=== PATIENT | male | born 1950 | race Caucasian/White ===

== ENCOUNTER 2018-11-12 07:54 | Outpatient (CLI) | payer BC, MEDICARE | END 2018-11-12 07:55 | disposition home or self-care (01) | LOC: CARDIO 07:54 ==

== ENCOUNTER 2018-11-13 09:05 | Inpatient (IN) | payer BC, MEDICARE ==
--- NOTE | 2018-11-13 09:13 | ED PDOC ---
Arrival/HPI - General Chief Complaint: Shortness Of Breath Time Seen by Provider: 11/13/18 09:11 Historian: Patient - History of Present Illness Narrative History of Present Illness (Text): 11/13/18 09:37 68 year old male with no significant PMH presents to the emergency department complaining of dry cough and SOB x 2 weeks. SOB is worse with lying flat. Pt saw his primary doctor and received a workup including bloodwork approx 1 week ago and an echocardiogram yesterday. Pt was called by PMD Dr. Davina Cuellar yesterday and told that the echo showed an EF of 20%, advised pt to come to the emergency department for evaluation. Admits to worsening bilateral leg and abdominal swelling over the last 2 weeks, but has been taking OTC water pills at the advice of his PMD with some relief. Denies chest pain, palpitations, fever, congestion, back pain, abdominal pain, N/V, urinary symptoms, or any other associated complaints. Past Medical History - Provider Review Nursing Documentation Reviewed: Yes Family/Social History - Physician Review Nursing Documentation Reviewed: Yes Family/Social History: No Known Family HX Allergies/Home Meds Allergies/Adverse Reactions: Allergies No Known Allergies Allergy (Verified 11/13/18 09:17) Home Medications: Home Meds Medication Instructions Recorded Confirmed Magnesium Salicylate/Caffeine 1 tab PO DAILY 11/13/18 11/13/18 [Diurex Water Pills] Review of Systems - Physician Review All systems were reviewed & negative as marked: Yes - Review of Systems Constitutional: Normal. absent: Fevers Eyes: Normal. absent: Vision Changes ENT: Normal. absent: Hearing Changes, Sore Throat, Sinus Congestion Respiratory: SOB, Cough. absent: Sputum, Wheezing Cardiovascular: Normal. absent: Chest Pain, Palpitations Gastrointestinal: Normal. absent: Abdominal Pain, Stool Changes, Nausea, Vomiting, Appetite Changes Genitourinary Male: Normal. absent: Dysuria, Frequency Musculoskeletal: Other (bilateral leg swelling). absent: Arthralgias, Back Pain, Neck Pain Skin: Normal. absent: Rash Neurological: Normal. absent: Headache, Dizziness Endocrine: Normal Hemo/Lymphatic: Normal Psychiatric: Normal Physical Exam Vital Signs Reviewed: Yes Temperature: Afebrile Blood Pressure: Hypertensive Pulse: Regular Respiratory Rate: Normal Appearance: Positive for: Well-Appearing, Non-Toxic, Comfortable Pain Distress: None Mental Status: Positive for: Alert and Oriented X 3 - Systems Exam Head: Present: Atraumatic, Normocephalic Pupils: Present: PERRL Extroacular Muscles: Present: EOMI Conjunctiva: Present: Normal Mouth: Present: Moist Mucous Membranes Neck: Present: Normal Range of Motion Respiratory/Chest: Present: Decreased Breath Sounds (bilaterally), Rales (bilateral bases). No: Respiratory Distress, Accessory Muscle Use Cardiovascular: Present: Regular Rate and Rhythm, Normal S1, S2, Peripheal Pu lses Present Abdomen: Present: Normal Bowel Sounds. No: Tenderness, Distention, Peritoneal Signs Back: Present: Normal Inspection Upper Extremity: Present: Normal Inspection, Normal ROM, NORMAL PULSES, Neurovascularly Intact, Capillary Refill < 2s. No: Cyanosis, Edema, Swelling, Temperature Abnormalties Lower Extremity: Present: Edema (bilateral pitting edema), NORMAL PULSES, Normal ROM, Swelling, Neurovascularly Intact, Capillary Refill < 2 s. No: CALF TENDERNESS, Tenderness, Deformity, Temperature Abnormalties Neurological: Present: GCS=15, CN II-XII Intact, Speech Normal, Motor Func Grossly Intact, Normal Sensory Function, Gait Normal Skin: Present: Warm, Dry, Normal Color. No: Rashes Psychiatric: Present: Alert, Oriented x 3, Normal Insight, Normal Concentration, Normal Affect, Normal Mood Medical Decision Making ED Course and Treatment: Initial Plan: * CBC, CMP * BNP, Cardiac Iso * MG, Phos * Coags * EKG * CXR 11/13/18 10:11 Lab results and imaging reviewed from recent workup. Significant for BNP 1663. Echocardiogram shows EF of 20.2%, pulmonary hypertension, tricuspid, aortic, and mitral regurgitation, hypokinesis of left and right ventricles. Potassium value 2.9, will replace with 40mEq oral and 10mEq IV BNP 4210, will give 40mEq lasix after potassium repletion CXR shows left pleural effusion, cardiomegaly EKG shows changes from prior, new t-wave inversions in inferolateral leads 11:[address] Padilla, medicine manager of information, who accepts patient to telemetry floor with diagnosis of CHF, requests cardiology consult and diet order. Patient made aware of change in disposition. Resting comfortably in stretcher with stable vital signs at this time. - Lab Interpretations Lab Results: 11/13/18 09:50 11/13/18 09:50 Lab Results 11/13/18 09:50: Sodium 138, Potassium 2.9 L*, Chloride 107, Carbon Dioxide 25, Anion Gap 9 L, BUN 20, Creatinine 0.9, Est GFR ( Amer) > 60, Est GFR (Non-Af Amer) > 60, Random Glucose 130 H, Calcium 8.2 L, Magnesium 1.6 L, Total Bilirubin 1.3, AST 75 H D, ALT 74 H, Alkaline Phosphatase 79, Lactate Dehydrogen ase 365, Total Creatine Kinase 132, Troponin I 0.01, NT-Pro-B Natriuret Pep 4210 H, Total Protein 5.9, Albumin 3.2, Globulin 2.6, Albumin/Globulin Ratio 1.2 11/13/18 09:50: PT 14.7 H, INR 1.30, APTT 31.9 11/13/18 09:50: WBC 5.1, RBC 4.64, Hgb 13.1 L, Hct 40.8 L, MCV 87.9, MCH 28.2, MCHC 32.1, RDW 14.9 H, Plt Count 159, MPV 10.9, Neut % (Auto) 60.1, Lymph % (Auto) 28.8, [place] % (Auto) 8.4 H, Eos % (Auto) 2.5, Baso % (Auto) 0.2, Lymph # (Auto) 1.5, [place] # (Auto) 0.4, Eos # (Auto) 0.1, Baso # (Auto) 0.01, Absolute Neuts (auto) 3.08 I have reviewed the lab results: Yes - RAD Interpretation Narrative RAD Interpretations (Text): CXR: Severe cardiomegaly and small left sided pleural effusion Fleet Maintenance Foreman: Radiologist - EKG Interpretation EKG Interpretation (Text): Rate 86; NSR; Prolonged QT; No STEMI, nonspecific ST/T wave changes Interpreted by ED Physician: Yes Type: 12 lead EKG Comparison: Com.w/previous EKG (06/25/17) Disposition/Present on Arrival - Present on Arrival Any Indicators Present on Arrival: No History of DVT/PE: No History of Uncontrolled Diabetes: No Urinary Catheter: No History of Decub. Ulcer: No - Disposition Have Diagnosis and Disposition been Completed?: Yes Diagnosis: CHF (congestive heart failure), Peripheral edema, Hypokalemia Disposition: HOSPITALIZED Disposition Time: 11:20 Patient Plan: Admission Patient Problems: Current Active Problems Problem Status Onset CHF (congestive heart failure) Acute Hypokalemia Acute Peripheral edema Acute Condition: STABLE
--- NOTE | 2018-11-13 10:00 | RAD ---
Date of service: 11/13/2018 HISTORY: SOB COMPARISON: No prior. FINDINGS: LUNGS: The lungs are well inflated and clear. PLEURA: Small left pleural effusion. No pneumothorax. CARDIOVASCULAR: There is severe cardiomegaly. There are aortic atherosclerotic calcifications present. OSSEOUS STRUCTURES: Within normal limits for the patient's age. VISUALIZED UPPER ABDOMEN: Normal. OTHER FINDINGS: None. IMPRESSION: Severe cardiomegaly and small left pleural effusion.
[2018-11-13 10:02] LABS: BASO # 0.01 K/mm3 (0.0-2.0); BASO % 0.2 % (0.0-3.0); EOS # 0.1 (0.0-0.7); EOS % 2.5 % (1.5-5.0); HEMOGLOBIN 13.1 g/dL (14.0-18.0); LYMPH # 1.5 (1.2-3.4); LYMPH % 28.8 % (22.0-35.0); MEAN CELL VOLUME 87.9 fl (80.0-105.0); MEAN CORPUSCULAR HEMOGLOBIN 28.2 pg (25.0-35.0); MEAN CORPUSCULAR HGB CONC 32.1 g/dl (31.0-37.0); MEAN PLATELET VOLUME 10.9 fl (7.0-11.0); MONO # 0.4 (0.1-0.6); MONO % 8.4 % (1.0-6.0); RBC 4.64 10^6/uL (3.5-6.1); RED CELL DISTRIBUTION WIDTH 14.9 % (11.5-14.5); WHITE BLOOD COUNT 5.1 10^3/uL (4.5-11.0)
[2018-11-13 10:34] LABS: INR 1.3; PARTIAL THROMBOPLASTIN TIME 31.9 Seconds (26.9-38.3); PROTHROMBIN TIME 14.7 SECONDS (9.4-12.5)
[2018-11-13 10:40] LABS: BLOOD UREA NITROGEN 20 mg/dL (7-21); GFR NON-AFRICAN AMERICAN > 60
[2018-11-13 10:41] LABS: ALB/GLOB RATIO 1.2 (1.1-1.8); ALBUMIN 3.2 g/dL (3.0-4.8); AST/SGOT 75 U/L (17-59); B-TYPE NATRIURETIC PEPTIDE 4210 pg/mL (0-450); CALCIUM 8.2 mg/dL (8.4-10.5)
[2018-11-13 10:42] LABS: ALT/SGPT 74 U/L (7-56); TROPONIN I 0.01 ng/mL
[2018-11-13] MEDS ORDERED: Potassium Chloride 20 mEq ER Tab PO STA (10:44)
[2018-11-13] MEDS: Potassium Chloride 20 mEq ER Tab PO SCH (17:22)
--- NOTE | 2018-11-13 17:31 | US ---
Date of service: 11/13/2018 HISTORY: elevated lfts COMPARISON: None. TECHNIQUE: Grayscale imaging was performed. FINDINGS: LIVER: Measures 16.0 cm in length. There is diffuse increased echogenicity of the liver parenchyma. No mass. No intrahepatic bile duct dilatation. GALLBLADDER: There are no gallstones. The gallbladder is partially contracted. There is apparent mild gallbladder wall thickening which measures 4 mm. The sonographic Negron's sign is negative. No pericholecystic fluid. COMMON BILE DUCT: Measures 7.4 mm. No stones. No dilatation. PANCREAS: Unremarkable as visualized. No mass. No ductal dilatation. RIGHT KIDNEY: Measures 11.7 cm in length. Normal echogenicity. No calculus, mass, or hydronephrosis. There is a 2.2 x 2.0 x 2.2 cm simple cyst in the upper pole. AORTA: No aneurysmal dilatation. IVC: Unremarkable. OTHER FINDINGS: There is mild perihepatic ascites. IMPRESSION: 1. Fatty liver. 2. Mild perihepatic ascites. 3. No cholelithiasis or biliary dilatation. Mild gallbladder wall thickening, nonspecific.
[2018-11-13 19:11] VITALS: BMI 23.3
--- NOTE | 2018-11-13 20:42 | CARD ---
APPROVED REPORT Date of service: 11/13/2018 EKG Measurement Heart [id number] <Conclusion> Normal sinus rhythm Possible Left atrial enlargement ST & T wave abnormalities Prolonged QTc Abnormal ECG
[2018-11-13 20:44] LABS: HEPATITIS B SURFACE AG Negative (NEGATIVE)
[2018-11-13 20:50] LABS: HEPATITIS A IGM NEGATIVE (NEGATIVE); HEPATITIS B CORE AB NEGATIVE (NEGATIVE)
[2018-11-13 21:01] LABS: HEPATITIS C ANTIBODY NEGATIVE (NEGATIVE)
--- NOTE | 2018-11-13 22:09 | HP ---
DATE OF EXAM: 11/13/2018 HISTORY OF PRESENT ILLNESS: This 68-year-old male was examined on cot 16 of the [facility] ER on the afternoon of 11/13/2018. He is a 68-year-old male. He presents to the [facility] emergency room complaining of a dry cough with shortness of breath for the past 2 weeks. He states that the shortness of breath was worse when he lays down flat at night in his bed and he had been seen by his primary care physician and had undergone a workup approximately 1 week ago including lab testing echocardiography venous duplex and a scrotal ultrasound. His physician, Dr. Davina Cuellar called the patient yesterday and told him that his echo showed an ejection fraction of approximately 20% and told him to come to the emergency room for further evaluation of the above. The patient states that he was given csfy-yvz-tjdrlkv water pills on the advice of his physician with improvement in the edema of his abdomen, groin and legs and at present, was noted to be hypokalemia. He is being admitted for all of the above. MEDICATIONS: The patient's outpatient medications included timo-vvk-mtqohbl water pills. ALLERGIES: HE HAS NO KNOWN ALLERGIES TO MEDICATIONS. 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 FAMILY HISTORY: Significant and that his mother at age 54 of a stroke, his father lived into his 90s and of natural causes. REVIEW OF SYSTEMS: CONSTITUTIONAL: He denied fever or chills. HEAD: No headache or seizures. EYES: No change in visual acuity. EARS: No hearing loss. THROAT: No swallowing difficulty. NECK: No stiffness. CARDIAC REVIEW: Denied chest pain or palpitation. PULMONARY: No cough, but shortness of breath. No hemoptysis. GI: No hematemesis. No melena. : No dysuria. SKIN: No ulcers. VASCULAR: No claudication. PSYCHOLOGICAL: No depression. NEUROLOGICAL: No knowledge of stroke. DIAGNOSTIC DATA: Chest x-ray was reviewed in the emergency room which showed that his lungs were inflated and clear. There was a small left pleural effusion, no pneumothorax with severe cardiomegaly and atherosclerotic calcifications present. The impression was severe cardiomegaly with small left pleural effusion. Labs showed white count 5100, hemoglobin 13.1, hematocrit 40.8, and platelets 159,000. PT/INR 1.3 and PTT 31.9. Sodium 138, K of 2.9, chloride 107, bicarb 25, BUN 20, creatinine 0.9, random blood sugar 130, and calcium 8.2. Magnesium 1.6, bilirubin 1.3, AST 75, ALT 74, and alk phos 79. BNP 4210. CPK 132, normal with troponin 0.01. EKG reportedly showed normal sinus rhythm with nonspecific ST-T wave changes. IMPRESSION: This 68-year-old male with cardiomyopathy, elevated liver function tests, rule out right heart failure with passive congestion of the liver. I did review his echocardiography dated 11/12/2018, which was in the [facility] x-ray system, it showed left ventricle dilated with normal left ventricular wall thickness severe impaired systolic function with global hypokinesis of the left ventricle. No left ventricle thrombus was noted on the study. The right ventricle was mildly dilated and severely hypokinetic with [id number]-cb-vgdyurrb aortic regurgitation, severe mitral regurgitation, severe tricuspid regurgitation with pulmonary hypertension present. PLAN: The plan at present is to admit this patient to the cardiac jensen. A consultation with Dr. Naif Valderrama has been requested. He will be placed on a heart-healthy diet with a 1000 ml p.o. fluid restriction. Potassium replacement has been requested, given his hypokalemia. I will order a hepatitis A, B, C panel and a liver ultrasound for completeness sake and he will be started on Zestril and Coreg for his cardiomyopathy. As discussed with the patient, he may require stress testing or cardiac cath. Greater than 75 minutes was spent in the care management, review of labs, orders, x-rays and discussion of this patient with him at bedside. All questions were answered Roselyn Padilla MD
[2018-11-14 08:19] LABS: CALCIUM 8.3 mg/dL (8.4-10.5); GFR NON-AFRICAN AMERICAN > 60; HDL CHOLESTEROL 30 mg/dL (29-60)
[2018-11-14 08:32] LABS: LDL CHOLESTEROL 109 mg/dL (0-129)
[2018-11-14 08:35] LABS: BLOOD UREA NITROGEN 21 mg/dL (7-21)
[2018-11-14] MEDS: Potassium Chloride 20 mEq ER Tab PO SCH ×3 (11:15→17:36)
--- NOTE | 2018-11-14 16:29 | PN ---
DATE: 11/14/2018 SUBJECTIVE: This 68-year-old male was examined at the [facility] on the cardiac jensen on the morning of 11/14/2018. This case was reviewed in detail with himself and Dr. Naif Valderrama from Cardiology. He was admitted with anasarca and cardiomyopathy with recent echocardiography showing ejection fraction of approximately 20%. The patient had been seen at a local [facility] for these complaints where on echo he was noted to have decompensated cardiomyopathy and advised to be admitted to [facility] for further evaluation of the above. On monitoring coordinator at the present time he is in a normal sinus rhythm. He denies any fever, chills, chest pain or shortness of breath at present. OBJECTIVE: VITAL SIGNS: Temperature was 97.4, respirations 21, pulse 81, blood pressure 142/84. Pulse ox 97%. HEENT: Head: Normocephalic, atraumatic. Eyes: No icterus. Ears: Clear. Throat: Noninjected. NECK: Supple. HEART: S1, S2. LUNGS: Clear. ABDOMEN: Soft. EXTREMITIES: Trace edema. SKIN: Without rash. NEUROLOGICAL: Intact. PSYCHOLOGICAL: Alert. VASCULAR: Legs warm to touch. LABORATORY DATA: White count 5100, hemoglobin 13.1, hematocrit 40.8, platelets 159,000. PT/INR 1.3, PTT 31.9. Sodium 139, K 3, chloride 106, bicarb 26, BUN 21, creatinine 0.9, random blood sugar 90, calcium 8.3. Cholesterol 158, triglycerides 76, LDL 109, HDL 30. T4 normal at 8. Hepatitis A, B serologies are negative. Abdominal ultrasound was reviewed. This was requested because of elevated liver function testing. His liver measures 16 cm in length with diffuse increased echogenicity noted of his liver parenchyma. No masses, no intrahepatic bile duct dilatation was noted. No gallstones were noted. Common bile duct was within normal limits. Pancreas showed no mass. He was noted to have fatty liver, mild perihepatic ascites, no cholelithiasis or biliary tract dilatation and right kidney showed no hydronephrosis with a simple cyst. IMPRESSION: This is a 68-year-old male with cardiomyopathy, anasarca. PLAN: To continue Coreg, K-Dur, Lasix, Zestril. The patient was recommended to have a cardiac cath by Dr. Valderrama. I have reviewed this with him in detail. He continues on heart-healthy diet with fluid restriction and will be scheduled for a basic metabolic panel in the a.m. Based on clinical progress, additional diagnostic workup and testing will be entertained. Greater than 35 minutes was spent in the management of this patient today. All questions were answered. Roselyn Padilla MD MTDD
--- NOTE | 2018-11-15 03:23 | CON ---
DATE: 11/14/2018 REQUESTING PHYSICIAN: Dr. Padilla REASON FOR CONSULTATION: Peripheral edema and congestive heart failure. HISTORY: This is a 68-year-old man who reportedly has no significant past medical history and was recently seen by his primary care physician for complaints of leg edema and scrotal edema. A lower extremity venous duplex scan was reportedly performed and was apparently unremarkable. Scrotal ultrasound showed no evidence of hydrocele. Echocardiogram was performed revealing four-chamber enlargement with severely reduced LV systolic function. Admission for treatment was advised. He denies any prior cardiac history. He states he has had elevated blood pressure at times in the past but has not required medication for this. He denies alcohol abuse. He has had no recent viral illnesses. He has noticed a dry cough and some dyspnea for the past several weeks. He has had no fever. He is unaware of any palpitations. He is not a diabetic and his cholesterol is reportedly normal. He does not smoke, and there is no family history of premature heart disease. PAST HISTORY: Otherwise unremarkable. MEDICATIONS: Until recently none. ALLERGIES: NONE. SOCIAL HISTORY: He does not smoke or drink. 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 FAMILY HISTORY: Father in his 90s from age-related illness. Mother from cerebrovascular accident at the age of 54, details were unclear. He is a [place] [employer] [facility] [employer]. REVIEW OF SYSTEMS: Ten-point review of systems is otherwise unremarkable. He states that his stamina is relatively good and he rides a bicycle around town frequently. PHYSICAL EXAMINATION: GENERAL: He is a thin middle-aged man. VITAL SIGNS: His blood pressure is 126/90 with a pulse of 80 and sinus, respirations are 16. He is afebrile. HEENT: Head normocephalic, atraumatic. NECK: Supple. No JVD noted. CHEST: Few scattered rhonchi are heard. No rales noted. HEART: PMI displaced laterally with soft tones present and systolic murmur at the lower left sternal border and apex. ABDOMEN: Soft, mildly distended. Bowel sounds are present. EXTREMITIES: 2+ edema in both lower extremities is noted. SKIN: Warm and dry. PSYCHIATRIC: Normal mood and affect. NEUROLOGIC: Alert and oriented x3. No gross motor or sensory deficits noted. DIAGNOSTIC DATA: White count is 5.1, hemoglobin and hematocrit of 13.1 and 40.8 with a platelet count of 159,000. PT and PTT of 14.7 and 31.9. Initial potassium was 2.9, repeat is 3; replacement has been provided. BUN and creatinine of 20 and 0.9. Glucose 130. Hemoglobin A1c 6.3. Magnesium 1.6. AST and ALT elevated at 75 and 74. Troponin is negative. BNP is 4210. Cholesterol is 158 with an HDL of 30 and LDL of 109, triglycerides of 76. Hepatitis serology is negative. Chest x-ray reveals an enlarged cardiac silhouette with clear lung bowman. Electrocardiogram reveals sinus rhythm with left atrial abnormality, prolonged QT and nonspecific ST-T abnormalities. IMPRESSION: 1. Decompensated congestive heart failure, right sided greater than left, appears acute and systolic, etiology uncertain. 2. Elevated transaminases, possibly is related to a passive congestion. 3. Rest of problems as noted. RECOMMENDATIONS: The patient has been initiated on low-dose carvedilol. MELISA inhibitor has been added as well. IV Lasix has been started as well. Given his severe LV dysfunction of uncertain etiology, right and left heart catheterization and coronary angiography would be appropriate. The timing of this will be discussed with the patient and Dr. Padilla. Once he is adequately diuresed, discharge home can be planned and his catheterization can be arranged as an outpatient. Further recommendations will be made based upon his clinical course and response to the above interventions. Thank you for this consultation. We will be happy to follow along as needed. Naif Valderrama MD
[2018-11-15 07:50] LABS: BLOOD UREA NITROGEN 21 mg/dL (7-21); CALCIUM 8.7 mg/dL (8.4-10.5); GFR NON-AFRICAN AMERICAN > 60
[2018-11-15] MEDS: Potassium Chloride 20 mEq ER Tab PO SCH ×3 (10:48→17:38)
--- NOTE | 2018-11-15 13:45 | PN ---
DATE: 11/15/2018 SUBJECTIVE: This 68-year-old male remains hospitalized with cardiomyopathy and congestive heart failure. I did review the patient's abdominal ultrasound, it is consistent with fatty liver and perihepatic ascites in the setting of right heart failure secondary to cardiomyopathy and mitral regurgitation. I have discussed this case in detail with the patient and Dr. Naif Valderrama from Cardiology. According to his nurse, Armida Lugo, registered nurse with whom I have discussed this case, the patient is on schedule for cardiac cath in the a.m. At present, he remains in a normal sinus rhythm on potline monitor. PHYSICAL EXAMINATION VITAL SIGNS: Temperature 97.8, respirations 20, pulse 87, and blood pressure 125/94 with pulse ox 97% on room air. Physical exam remains unchanged. LABORATORY DATA: White count 5100, hemoglobin 13.1, hematocrit 40.8, platelets 159,000. PT/INR 1.3, PTT 31.9. Sodium 141, K 3.2, chloride 108, bicarb 28, BUN 21, creatinine 1.0, random blood sugar 94, calcium 8.7. Cholesterol 158, triglycerides 76, LDL 109 and HDL 30 with a T4 normal at 8.0. Hepatitis ABC serologies are negative. IMPRESSION: A 68-year-old male with systolic congestive heart failure, right heart failure causing elevated liver function testing secondary to passive congestion of the liver as well as fatty liver with diuretic-induced hypokalemia and hyperlipidemia. PLAN: Plan is to continue Coreg, K-Dur, Lasix, IV potassium replacement for hypokalemia, Zestril, p.r.n. Tylenol and Zofran. The patient will have a repeat basic metabolic panel in the a.m. I have ordered his Lasix to be decreased to 20 mg IV every 12 hours. He will continue on K-Dur 40 mEq p.o. t.i.d. and he will be given potassium chloride 20 mEq and 100 mL of IV fluids over 2 hours x2 doses and will be continued on his heart-healthy diet, but made n.p.o. at midnight tonight. Based on his clinical result, additional diagnostic workup and testing will be entertained. Greater than 35 minutes was spent in the care management, review of labs, orders and x-rays and discussion of this patient with nurse, Parish. All questions were answered. Roselyn Padilla MD [facility] # [phone]
--- NOTE | 2018-11-15 15:18 | PN ---
DATE: 11/15/2018 SUBJECTIVE: The patient is seen lying in bed on telemetry. He is more comfortable. His edema is improved. He denies any dyspnea. He is willing to remain in hospital for completion of his workup. His current medications include carvedilol 3.125 mg b.i.d., Lasix 20 mg every 12 hours, potassium 40 mEq t.i.d., Zestril and Zofran. OBJECTIVE: GENERAL: He is a middle-aged man, who appears comfortable at rest. VITAL SIGNS: Blood pressure 126/94 with a pulse of 86 in sinus and respirations are 16. He is afebrile. HEENT: No JVD. CHEST: Few scattered rhonchi. HEART: PMI displaced laterally with soft tones noted. ABDOMEN: Soft, nontender and normoactive bowel sounds. EXTREMITIES: Trace ankle edema. DIAGNOSTIC DATA: Potassium 3.2, it has been replaced. BUN, and creatinine 21 and 1.0. IMPRESSION: 1. Decompensated congestive heart failure, acute systolic, clinically improved, etiology remains unclear. 2. Elevated transaminases, likely due to passive congestion. RECOMMENDATIONS: Continue diuretic therapy. Beta-hali and afterload reduction should continue. A right and left heart catheterization will be planned for the morning. The risks and benefits have been discussed with the patient in detail and he is agreeable to proceed. Carvedilol dose will be increased as tolerated and his MELISA inhibitor will be withheld in anticipation of dye exposure. Further recommendations will be made based upon the results of his catheterization. Naif Valderrama MD
[2018-11-16 06:23] VITALS: O2SAT 98
[2018-11-16] MEDS ORDERED: Phenylephrine 10 mg/ml Inj ONE (06:50)
[2018-11-16] MEDS ORDERED: Iodixanol 320 MG/ML 200 ML BOTTLE IV ONE ×2 (06:51→07:44)
[2018-11-16] MEDS ORDERED: Iohexol 350mgl/ml 50 ML ONE (06:51)
[2018-11-16] MEDS ORDERED: Iodixanol 320 MG/ML 100 ML BOTTLE IV ONE (06:51)
[2018-11-16] MEDS ORDERED: Lidocaine PF 2% (5 ml) Inj (For Cardiac Arrhy) ONE (06:52)
[2018-11-16] MEDS ORDERED: Midazolam 2 MG/2 ML VIAL ONE (07:39)
[2018-11-16 07:44] LABS: BLOOD UREA NITROGEN 23 mg/dL (7-21); CALCIUM 8.4 mg/dL (8.4-10.5); GFR NON-AFRICAN AMERICAN > 60
[2018-11-16] MEDS ORDERED: Sodium Chloride 0.9% 1,000 ML IV SCH (08:15)
[2018-11-16] MEDS: Potassium Chloride 20 mEq ER Tab PO SCH ×2 (09:32→14:35)
--- NOTE | 2018-11-16 10:40 | CARDCATH ---
PROCEDURE DATE: 11/16/2018 PROCEDURES: 1. Right and left heart catheterization. 2. Selective left and right coronary angiography. 3. Left ventriculography. 4. Right femoral arteriography. 4. Angio-Seal deployment. HISTORY: This is a 68-year-old man with no known past medical history who was admitted with increased abdominal girth, scrotal edema and peripheral edema. He was diuresed. An echocardiogram showed evidence of severe LV systolic dysfunction and cardiac catheterization was recommended. He was found to be somewhat hypertensive in the hospital. INDICATION: Congestive heart failure, cardiomyopathy of unknown etiology. FINDINGS: HEMODYNAMICS: The right heart pressure were as follows: The RA mean pressure was 12. The RV pressure was 60/4. The PA pressure was 64/22 with a pulmonary capillary wedge pressure of 20. The cardiac output by thermodilution method was 2.1 L/minute with a cardiac index of 1.1 L/min/m2. CORONARY ANATOMY: 1. The left mainstem and proximal LAD were moderately calcified. The left mainstem had a mild ostial tapering and a 40% lesion in its distal segment. The proximal LAD had a 70% ostial stenosis. In the late proximal segment there was a 80% stenosis at the origin of a small septal painter. Following this, there was a long complex area of the 70%-90% stenosis in the early mid portion of the vessel. The early distal segment had a focal 70% stenosis. The distal vessel was small to moderate caliber and wrapped around the apex. The diagonal branch has had evidence of severe ostial disease and were small to moderate size caliber. 2. The left circumflex artery had a 60% proximal stenosis, first obtuse marginal branch. He had a diffuse 50% stenosis and his proximal segment. The second and third obtuse marginal branch has had minimal disease. 3. The right coronary artery was dominant and had diffused disease as well. There is a 50% stenosis and its proximal segment and the early distal segment of the vessel there was a diffuse 70% stenosis present and prior to take off of the posterior descending artery there was a focal 80% stenosis. The posterolateral branch was fairly small. The acute marginal branch had a 90% stenosis. LEFT VENTRICULOGRAPHY: A hand injection was performed on the ventricle revealing evidence of severe mid and distal diaphragmatic as well as apical hypokinesis. Overall ejection fraction appeared to be in the 20%-25% range. The ventriculogram was suboptimal due to frequent ventricular ectopy. The basal segments of the heart appeared to contract fairly well. RIGHT FEMORAL ARTERIOGRAPHY: A right femoral arteriogram revealed evidence of appropriate level of arterial puncture and no evidence of significant disease. Off note, forward flow was sluggish. CONCLUSIONS: 1. 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 2. Severe left ventricular systolic dysfunction. 3. Moderately elevated right heart pressures. RECOMMENDATIONS: Given the above findings of LV dysfunction and complex coronary artery disease, evaluation for possible coronary artery bypass surgery with the hopes of revascularization will improve LV function will be advised. In the interim, continued beta-hali, statin, diuretic therapy and afterload reduction therapy will be continued. Naif Valderrama MD cc: Roselyn Padilla MD [facility] # [id number] MTDD
[2018-11-16] MEDS ORDERED: A C T ELECTRONICS XX ONE (10:41)
--- NOTE | 2018-11-16 11:03 | PN ---
DATE: 11/16/2018 SUBJECTIVE: The patient is seen lying in bed on telemetry. He is comfortable at the present time. He denies any chest pain. His edema is resolved. CURRENT MEDICATIONS: Include carvedilol 6.25 mg b.i.d., Ecotrin once daily, Lasix 20 mg IV every 12 hours and Zestril 5 mg daily. OBJECTIVE: GENERAL: He is a middle-aged male who appears comfortable at rest. VITAL SIGNS: His blood pressure is 126/90 with a pulse of 78 and sinus respirations are 16. He is afebrile. HEENT: No JVD. CHEST: Clear to auscultation and percussion. HEART: PMI displaced laterally with soft tones noted. ABDOMEN: Soft, nontender with bowel sounds. EXTREMITIES: No edema. DIAGNOSTIC DATA: Potassium is 4.o. IMPRESSION: 1. Decompensated congestive heart failure, acute systolic, though significantly improved. 2. Probable hypertension. RECOMMENDATIONS: His current medications will be continued for now. Cardiac catheterization will be performed this morning and further recommendations will be based upon those results. We will continue to follow and make further recommendations as appropriate. Continue sodium and fluid restriction are advised as well. Naif Valderrama MD MTDD
[2018-11-16 11:43] VITALS: TEMP 97.7
[2018-11-16 14:05] VITALS: PULSE 90
[2018-11-16 15:57] VITALS: BP 118/93; RESP 18
--- NOTE | 2018-11-16 21:31 | DS ---
FINAL DIAGNOSES: Cardiomyopathy; congestive heart failure, improved; abnormal cardiac catheterization with cardiac catheterization showing left mainstem and proximal left anterior descending moderately calcified, left mainstem had a mild ostial tapering of 40% lesion in the distal segment with the proximal left anterior descending having a 70% ostial stenosis. In the late proximal segment, there is an 80% stenosis and there is a long complex area with a 70% to 90% stenosis in the early midportion of this blood vessel. His left circumflex artery has a 60% proximal stenosis. He has a 50% stenosis in the proximal segment of his obtuse marginal branch and the right coronary artery, which is dominant, had diffuse disease with a 50% stenosis in the proximal segment and a 70% stenosis prior to its takeoff of the posterior descending artery. The conclusion is [id number] diffuse triple-vessel disease with severe left ventricular systolic dysfunction and moderately elevated right heart pressures. Given the above findings with left ventricular dysfunction and complex coronary artery disease, the patient is being recommended for evaluation for possible coronary artery bypass surgery with the hope that revascularization will improve left ventricular function. In the interim, the patient will be continued on beta-hali, statin, diuretic therapy, and afterload reduction therapy. At present, outreach and education social worker is trying to ascertain facility that will accept his insurance and his tentative discharge medications will include Aldactone 25 mg p.o. daily, Coreg 12.5 mg b.i.d., Ecotrin 81 mg p.o. daily, Lasix 20 mg b.i.d., K-Dur 40 mEq t.i.d., and Zestril 5 mg daily. SUMMARY: This is a 68-year-old male who was admitted to the [facility] ([facility]3] with congestive heart failure, anasarca, and reports of an abnormal outpatient echocardiography showing left ventricular ejection fraction of approximately 20%. The patient was admitted, seen in consultation by Dr. Naif Valderrama from Cardiology who recommended cardiac cath, which showed the above findings. At the time of the patient's discharge he was alert and understanding all of the above and in agreement with recommendation for cardiac bypass surgery. PHYSICAL EXAMINATION: VITAL SIGNS: Temperature was 98.2, respirations 18, pulse 90 and blood pressure 135/90 with a pulse ox of 98% on room air. LABORATORY DATA: White count 5100, hemoglobin 13.1, hematocrit 40.8, and platelets 159,000. PT/INR 1.3 and PTT 31.9. Sodium 141, K 4.3, chloride 110, bicarb 24, BUN 23, creatinine 1, and random blood sugar 101 with a calcium of 8.4. Cholesterol 158, triglycerides 76, LDL 109, and HDL 30. T4 normal 8. Hepatitis A, B, and C serologies are negative. ADDITIONAL DIAGNOSES: Include fatty liver, periportal ascites, and right heart failure. DISPOSITION: As per Cardiology, followup in my office upon completion of cardiac bypass surgery. The patient was advised not to return to work or do any exertional activity until cleared by Cardiology. Hepatitis A, B, and C screens were also negative. The patient was cleared for discharge or transfer by Dr. Naif Valderrama from Cardiology as well. Greater than 35 minutes was spent in the discharge management of this patient, review of medications, reports, orders, and discussion of all of the above with his nurse, Armida Lugo, registered nurse. All questions were answered. Roselyn Padilla MD
== END 2018-11-16 18:49 | disposition home or self-care (01) | DRG 286 ==
LOC: ED 09:05 → ERH 11:29 → 2RSO 14:13
PROVIDERS: ADMIT Internal Medicine; ATTEND Internal Medicine
PROC: 4A023N8 Measurement of Cardiac Sampling and Pressure, Bilateral, Percutaneous Approach (ICD-10-PCS; principal; 2018-11-16)
PROC: B2111ZZ Fluoroscopy of Multiple Coronary Arteries using Low Osmolar Contrast (ICD-10-PCS; 2018-11-16)
PROC: B2161ZZ Fluoroscopy of Right and Left Heart using Low Osmolar Contrast (ICD-10-PCS; 2018-11-16)
PROC: B2151ZZ Fluoroscopy of Left Heart using Low Osmolar Contrast (ICD-10-PCS; 2018-11-16)
DX: I11.0 Hypertensive heart disease with heart failure (principal); I50.21 Acute systolic (congestive) heart failure; R18.8 Other ascites; I42.9 Cardiomyopathy, unspecified; R05 Cough; E87.6 Hypokalemia; I27.20 Pulmonary hypertension, unspecified; I08.3 Combined rheumatic disorders of mitral, aortic and tricuspid valves; R03.0 Elevated blood-pressure reading, without diagnosis of hypertension; R74.0 Nonspecific elevation of levels of transaminase and lactic acid dehydrogenase [LDH]; I50.82 Biventricular heart failure; E78.5 Hyperlipidemia, unspecified; I25.10 Atherosclerotic heart disease of native coronary artery without angina pectoris; I27.29 Other secondary pulmonary hypertension; I49.3 Ventricular premature depolarization; K76.0 Fatty (change of) liver, not elsewhere classified; K76.1 Chronic passive congestion of liver; T50.2X5A Adverse effect of carbonic-anhydrase inhibitors, benzothiadiazides and other diuretics, initial encounter; Z79.899 Other long term (current) drug therapy; Z82.3 Family history of stroke